=== PATIENT | female | born 1955 | race Caucasian/White ===

== ENCOUNTER 2020-09-10 06:57 | Outpatient (NON) | payer MEDICARE, SELFPAY ==
[2020-09-10 22:27] LABS: SARS-CoV-2 RNA PCR Negative
== END 2020-09-10 06:58 ==
PROVIDERS: PCP Family Medicine; Visit Provider Nurse Practitioner Family
DX: Z20.822 Contact with and (suspected) exposure to COVID-19 (principal); R50.9 Fever, unspecified
CPT/HCPCS: C9803; U0003; U0005